=== PATIENT | male | born 1945 | race Caucasian/White ===

== ENCOUNTER 2024-11-12 12:24 | Outpatient (CLI) | payer MEDICARE ==
[2024-11-12 13:33] LABS: #Basophils 0.03 10x3/uL (0.0-0.2); #Eosinophils 0.04 10x3/uL (0.0-0.5); #Monocytes 0.69 10x3/uL (0.0-1.1); #Neutrophils 4.96 10x3/uL (1.5-8.4); %Basophils 0.4 % (0.0-2.0); %Eosinophils 0.5 % (0.0-6.0); %Lymphocytes 32.2 % (18.0-47.0); %Monocytes 8.1 % (0.0-10.0); %Neutrophils 58.3 % (40.0-75.0); Hematocrit 41.8 % (38.8-50.0); Hemoglobin 14.3 g/dL (13.5-17.5); Mean Corpuscular HGB CONC 34.2 g/dL (32.0-36.0); Mean Corpuscular Hemoglobin 31.4 pg (27.0-33.0); Mean Corpuscular Volume 91.7 fL (81.2-95.1); Mean Platelet Volume 9.2 fL (7.4-10.4); Platelet Count 231 10x3/uL (150-450); RBC Distribution Width 11.9 % (11.5-14.5); Red Blood Cell (RBC) Count 4.56 10x6/uL (4.32-5.72); White Blood Cell (WBC) Count 8.5 10x3/uL (3.5-10.5)
[2024-11-12 13:50] LABS: Anion Gap 15 mmol/L (10-20); BUN (Urea Nitrogen) 13 mg/dL (8.4-25.7); Calc. Creatinine Clearance 0 mL/min (70-130); Calcium 9.8 mg/dL (7.8-10.44); Carbon Dioxide 25 mmol/L (23-31); Chloride 105 mmol/L (98-107); Estimated GFR 87; Glucose 103 mg/dL (83-110); Potassium 4.7 mmol/L (3.5-5.1); Sodium 140 mmol/L (136-145)
== END 2024-11-12 12:25 | disposition home or self-care (01) ==
LOC: CSHLAB 12:24
PROVIDERS: ATTEND Surgery
DX: Z01.818 Encounter for other preprocedural examination (principal); K40.90 Unilateral inguinal hernia, without obstruction or gangrene, not specified as recurrent
CPT/HCPCS: 80048; 85025; 93005; 93010

== ENCOUNTER 2024-11-19 06:47 | Day surgery (SDC) | payer MEDICARE ==
[2024-11-12 12:50] VITALS: BMI 25.1
[2024-11-19] MEDS ORDERED: Lidocaine 1% PF 5 ML VIAL ONE ×2 (07:58→08:46)
[2024-11-19] MEDS ORDERED: PROPOFOL 0 ML ONE (07:58)
[2024-11-19] MEDS ORDERED: Rocuronium Bromide 10 MG/ML (10ML VIAL) ONE ×2 (07:58→08:46)
[2024-11-19] MEDS ORDERED: fentaNYL 50 mcg/mL 1 mL Vial ONE ×2 (07:59→08:46)
[2024-11-19] MEDS ORDERED: Bupivacaine/Epinephrine 0.25% 30 ML VIAL ONE (08:00)
[2024-11-19] MEDS ORDERED: CEFAZOLIN 2 GM VIAL ONE (08:00)
[2024-11-19] MEDS ORDERED: Ondansetron PF 4 MG/2 ML Vial ONE ×2 (08:46→09:50)
[2024-11-19] MEDS ORDERED: Dexamethasone 4 mg/ml Vial ONE (08:46)
[2024-11-19] MEDS ORDERED: SUGAMMADEX SODIUM 200 MG/2 ML VIAL ONE ×2 (08:46→09:50)
[2024-11-19] MEDS ORDERED: PROPOFOL 20 ML ONE (08:46)
[2024-11-19] MEDS ORDERED: ePHEDrine Sulfate 50 MG/10 ML VIAL ONE (09:11)
[2024-11-19] MEDS ORDERED: HYDROcodone/Acetaminophen 5/325 mg Tablet ONE (11:07)
== END 2024-11-19 11:35 | disposition home or self-care (01) ==
LOC: CSHSDC 06:47
PROVIDERS: ATTEND Surgery
PROC: 0YU64JZ Supplement Left Inguinal Region with Synthetic Substitute, Percutaneous Endoscopic Approach (ICD-10-PCS; principal; 2024-11-19)
DX: K40.90 Unilateral inguinal hernia, without obstruction or gangrene, not specified as recurrent (principal); I10 Essential (primary) hypertension; E78.5 Hyperlipidemia, unspecified; Z88.5 Allergy status to narcotic agent; Z79.899 Other long term (current) drug therapy
CPT/HCPCS: 49650; C1781; J2405; J2704; J3010; S2900; J1100